=== PATIENT | male | born 1980 | race Two or more races ===

== ENCOUNTER 2024-07-30 10:36 | Outpatient (REF) | payer MEDICAID, SELFPAY | END 2024-07-30 10:37 | disposition home or self-care (01) | LOC: HO.HOSX 10:36 | PROVIDERS: Visit Provider Physician Assistant | DX: Z13.89 Encounter for screening for other disorder (principal) ==

== ENCOUNTER 2024-08-03 10:50 | Outpatient (AMB) | payer MEDICAID, SELFPAY ==
--- NOTE | 2024-08-03 11:04 | A.OFFVIS_ITS ---
Intake Visit Reasons: New patient Left shoulder pain Intake Note: Stewart is a 43 year old male who presents today with complaints of left shoulder pain. Pt states the pain started 4 years ago with no known injury. Pt states his shoulder will pop out of place especially when he lifts his arm above his head. Pt states he has constant pain in his shoulder. Pt denies any previous surgeries or injections in his left shoulder. Media Relations Intern Required: Yes Media Relations Intern Language: Director Mba Services: Media Relations Intern Present Media Relations Intern Name: Chanelle ([id number]) Allergies No Known Allergies Allergy (Verified 08/03/24 11:04) HPI HPI New patient Left shoulder pain: Details: 43-year-old female, who is Salvadorean speaking, presents in the office today, as a new patient, for an evaluation of left shoulder pain. The patient was seen by SANTY Vick at [facility] on 07/13/24 for chronic left shoulder dislocation. She was referred to [facility] [place]. While in the office today, the patient complains of constant left shoulder pain. She states the onset of pain was 4 years ago with no known injury. He reports having shoulder dislocation, especially when he lifts his left arm above his head. He had three dislocations while living in [place] and had to go to the ED for reduction. He also had four dislocations when he returned here and had to visit ED, needing reduction. He continues to have left shoulder instability. Review of Systems Const All systems reviewed & are unremarkable except as noted in HPI and below Physical Exam Const General: cooperative and no acute distress Orientation/consciousness: patient oriented x3 Resp Effort & Inspection: normal respiratory effort and able to speak in complete sentences Cardio Peripheral pulses: Peripheral pulses 2+ throughout Skin General skin exam: no rashes or lesions noted Neuro General: patient oriented x3 Extrem Other: Left shoulder normal to inspection lacking 45 degrees forward flexion and abduction. External rotation to end range. Positive sulcus. Negative empty can and drop arm. Positive cross body reach. NVI. Assessment & Plan Assessment & Plan (1) Instability of left shoulder joint: Code(s): M25.312 - Other instability, left shoulder Category: Medical Plan Ms. Cohen is a 43-year-old female, who is Salvadorean speaking, presents in the office today, as a new patient, for an evaluation of left shoulder pain. The patient was seen by SANTY Vick at [facility] on 07/13/24 for chronic left shoulder dislocation. She was referred to [facility] [place]. While in the office today, the patient complains of constant left shoulder pain. She states the onset of pain was 4 years ago with no known injury. He reports having shoulder dislocation, especially when he lifts his left arm above his head. He had three dislocations while living in [place] and had to go to the ED for reduction. He also had four dislocations when he returned here and had to visit the ED, needing reduction. He continues to have left shoulder instability. We discussed the role of physical therapy; however, due to the quantity of dislocation the patient has had with assisted reductions, it would be appropriate to order an MRI to further evaluate the stability of the left shoulder. I have placed an order for an MRI of the left shoulder. Should the insurance deny the MRI order, the patient understands he will need to attend 6 weeks of physical therapy before a new order can be placed. In that case, the patient will contact the office, and I will be happy to place an order for PT. Follow-up will be with me after the MRI is obtained, or sooner if needed. X-rays of the left shoulder, which were obtained while in the office today and were reviewed by me, Kalie Pratt PA-C, revealed: Negative for any acute fracture or dislocation. Orders: Orders MR shoulder LT w con 08/03/24 M25.312 - Other instability, left shoulder XR shoulder LT min 2V 08/03/24 M25.519 - Pain in unspecified shoulder Patient Instructions: Scribed by Karlie Lizarraga medical oncologist, for Kalie Pratt PA-C on 08/03/24 at 11:18 am EST. Coding Level of Care Code New Pt Level 4 (72790) Diagnoses Instability of left shoulder joint M25.312
== END 2024-08-03 11:51 | disposition home or self-care (01) ==
PROVIDERS: PCP Physician Assistant; Visit Provider Physician Assistant
DX: M25.312 Other instability, left shoulder (principal)
CPT/HCPCS: 99203

== ENCOUNTER 2024-08-03 11:23 | Outpatient (REF) | payer MEDICAID, SELFPAY | END 2024-08-03 11:24 | disposition home or self-care (01) | LOC: HO.HOSX 11:23 | PROVIDERS: Visit Provider Physician Assistant | DX: M25.312 Other instability, left shoulder (principal) | CPT/HCPCS: 73030; 99212 ==